=== PATIENT | female | born 1980 | race African-American/Black ===

== ENCOUNTER → 2019-09-08 | Outpatient (CLI) | payer BC ==
[~2019-09-08] MED LIST: ASCO-339 PO; ASPI-1028 PO; ELDE1CAP PO; MULT-1146 PO; OREG1500 PO
== END | disposition home or self-care (01) ==
LOC: LAB 11:29
PROVIDERS: ATTEND Obstetrics & Gynecology Obstetrics
DX: U07.1 COVID-19 (principal)
CPT/HCPCS: 87635; C9803